=== PATIENT | female | born 1985 | race American Indian/Alaskan Native ===

== ENCOUNTER 2017-12-24 12:26 | Emergency (ER) | payer MEDICAID ==
[2017-12-24] MEDS ORDERED: NACL 0.9% 1000 ML 1,000 ML IV ONE ×2 (13:52→14:53)
--- NOTE | 2017-12-24 13:54 | Emergency Department Report ---
ED General Adult HPI - General Chief complaint: Hyperglycemia Stated complaint: DIFFICULTY BREATH/NAUSE/DKA Time Seen by Provider: 12/24/17 13:49 Source: patient, family, RN notes reviewed Mode of arrival: Stretcher Limitations: Altered Mental Status - History of Present Illness Initial comments: This is an 32-year-old female who is not known to this provider previously, who is brought to the hospital by her mother for hyperglycemia, altered mental status and weakness. Patient is altered and delirious and cannot answer questions. History is obtained from the patient's mother. 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 Mother reports the patient has been not acting right for at least the past day. The symptoms have been present for approximately 12-24 hours. They're constant, and asked her mother, did not radiate anywhere, and did not have exacerbating or relieving factors. Prior to the symptoms, the patient was in her usual state of health. -: days(s) Consistency: constant Improves with: none Worsens with: cold therapy Associated Symptoms: confusion, loss of appetite, weakness - Related Data Home Medications Medication Instructions Recorded Confirmed Last Taken Eluxadoline [Viberzi] 100 mg PO BID 12/24/17 12/24/17 Unknown Ferrous Sulfate [Feosol] 325 mg PO QDAY 12/24/17 12/24/17 Unknown Insulin Glargine,Hum.rec.anlog 15 unit SQ QHS 12/24/17 12/24/17 Unknown [Lantus] Labetalol [Normodyne] 200 mg PO BID 12/24/17 12/24/17 Unknown Lisinopril [Zestril] 20 mg PO QDAY 12/24/17 12/24/17 Unknown Pregabalin [Lyrica] 300 mg PO BID 12/24/17 12/24/17 Unknown amLODIPine [Norvasc] 5 mg PO DAILY 12/24/17 12/24/17 Unknown methOCARBAMOL [Robaxin TAB] 500 mg PO BID 12/24/17 12/24/17 Unknown Allergies Allergy/AdvReac Type Severity Reaction Status Date / Time metoclopramide [From Reglan] Allergy Unknown Verified 12/24/17 13:44 ED Review of Systems ROS: Stated complaint: DIFFICULTY BREATH/NAUSE/DKA Other details as noted in HPI Comment: Unobtainable due to pts medical conditions ED Past Medical Hx - Past Medical History Previous Medical History?: Yes Hx Diabetes: Yes (type 1) - Surgical History Past Surgical History?: No - Social History Smoking Status: Never Smoker Substance Use Type: None - Medications Home Medications: Home Medications Medication Instructions Recorded Confirmed Last Taken Type Eluxadoline [Viberzi] 100 mg PO BID 12/24/17 12/24/17 Unknown History Ferrous Sulfate [Feosol] 325 mg PO QDAY 12/24/17 12/24/17 Unknown History Insulin Glargine,Hum.rec.anlog 15 unit SQ QHS 12/24/17 12/24/17 Unknown History [Lantus] Labetalol [Normodyne] 200 mg PO BID 12/24/17 12/24/17 Unknown History Lisinopril [Zestril] 20 mg PO QDAY 12/24/17 12/24/17 Unknown History Pregabalin [Lyrica] 300 mg PO BID 12/24/17 12/24/17 Unknown History amLODIPine [Norvasc] 5 mg PO DAILY 12/24/17 12/24/17 Unknown History methOCARBAMOL [Robaxin TAB] 500 mg PO BID 12/24/17 12/24/17 Unknown History ED Physical Exam - General Limitations: Altered Mental Status, Physical Limitation General appearance: lethargic - Head Head exam: Present: atraumatic, normocephalic - Eye Eye exam: Present: normal appearance, PERRL, EOMI - ENT ENT exam: Present: mucous membranes dry - Neck Neck exam: Present: normal inspection, full ROM. Absent: tenderness, meningismus - Respiratory Respiratory exam: Present: rhonchi. Absent: respiratory distress - Cardiovascular Cardiovascular Exam: Present: regular rate, normal rhythm, tachycardia, normal heart sounds - GI/Abdominal GI/Abdominal exam: Present: soft. Absent: distended, tenderness, guarding, rebound, rigid, normal bowel sounds, pulsatile mass - Extremities Exam Extremities exam: Present: normal inspection, other (2+ pulses noted in the bilateral upper, lower extremities. Compartments soft. No long bony tenderness. The pelvis is stable.). Absent: pedal edema, joint swelling, calf tenderness - Back Exam Back exam: Present: normal inspection, full ROM. Absent: tenderness, CVA tenderness (R), paraspinal tenderness, vertebral tenderness - Neurological Exam Neurological exam: Present: altered, other (patient will answer some yes no questions. There is no facial droop. She moves 4 extremities spontaneously. Sensation is intact to light touch in 4 extremities. Detailed neurologic examination is limited secondary to underlying delirium.) ED Course Vital Signs 12/24/17 12/24/17 12/24/17 13:45 13:50 15:33 Temperature 97.8 F Pulse Rate 104 H 103 H Respiratory 16 18 22 Rate Blood Pressure 141/92 126/80 O2 Sat by Pulse 96 100 98 Oximetry 12/24/17 12/24/17 12/24/17 15:45 16:00 16:15 Temperature Pulse Rate 102 H 100 H 99 H Respiratory 17 19 16 Rate Blood Pressure 133/79 133/79 129/91 O2 Sat by Pulse 96 97 98 Oximetry 12/24/17 12/24/17 12/24/17 16:30 18:24 18:30 Temperature Pulse Rate 99 H Respiratory 15 Rate Blood Pressure 129/91 125/99 125/99 O2 Sat by Pulse 98 97 Oximetry 12/24/17 12/24/17 12/24/17 18:46 19:00 19:15 Temperature Pulse Rate Respiratory Rate Blood Pressure 139/79 119/70 100/67 O2 Sat by Pulse 99 99 98 Oximetry 12/24/17 12/24/17 12/24/17 19:30 19:45 20:00 Temperature Pulse Rate 97 H 94 H Respiratory 19 19 Rate Blood Pressure 100/67 124/83 112/77 O2 Sat by Pulse 98 95 95 Oximetry 12/24/17 12/24/17 12/24/17 20:15 20:30 20:45 Temperature Pulse Rate 88 88 91 H Respiratory 15 15 14 Rate Blood Pressure 100/56 97/53 106/60 O2 Sat by Pulse 98 98 98 Oximetry 12/24/17 12/24/17 12/24/17 21:00 21:15 21:30 Temperature Pulse Rate 92 H 91 H 93 H Respiratory 14 12 14 Rate Blood Pressure 99/64 105/71 108/63 O2 Sat by Pulse 100 99 98 Oximetry 12/24/17 12/24/17 12/24/17 21:45 22:00 22:15 Temperature Pulse Rate 93 H 95 H 94 H Respiratory 13 14 14 Rate Blood Pressure 112/73 115/75 110/74 O2 Sat by Pulse 98 99 99 Oximetry - Reevaluation(s) Reevaluation #1: 12/24/17 14:30 Differential diagnosis, including but not limited to: Pneumonia, urinary tract infection, diabetic ketoacidosis, dehydration, vasomotor nephropathy, hyperglycemia, hyperosmolar state Assessment and plan: 32-year-old female with global altered mental status, follows commands, suspect metabolic encephalopathy. She is tachycardic, but not hypotensive, and is protecting her airway at this time. Basic laboratory studies and serum toxicology studies pending. EKG, noncontrast CT scan of the brain, noncontrast CT scan of abdomen and pelvis, x- ray the chest pending. We will admit once initial data points have resulted. Reevaluation #2: 12/24/17 14:55 As expected, laboratory studies suggest diabetic ketoacidosis. This is manifested by anion gap of 35, and venous pH of 7.1, in addition to hyperglycemia. Insulin drip, insulin push ordered in addition to additional IV fluids. CT scan, x-ray, EKG still pending at this time. Page is placed out to critical care physician on-call. Family informed and updated. Reevaluation #3: 12/24/17 15:42 X-ray suggests pneumonia. Antibiotics ordered. Case discussed with critical care physician, Dr. Chino, who agrees with placement into the intensive care unit; his group will follow in consultation Reevaluation #4: 12/24/17 15:[address] Kassidy Villarreal to follow up on ct ehad, ct a/p, ua. if no significant disease noted that would require transfer, would admit to this facility critical care on board ED Medical Decision Making - Lab Data Result diagrams: 12/24/17 13:44 12/24/17 20:37 Vital Signs 12/24/17 13:45 Temperature 97.8 F Pulse Rate 104 H Respiratory 16 Rate Blood Pressure 141/92 O2 Sat by Pulse 96 Oximetry Lab Results 12/24/17 12/24/17 12/24/17 Range/Units 13:35 13:44 13:44 WBC 16.2 H (4.5-11.0) K/mm3 RBC 3.42 L (3.65-5.03) M/mm3 Hgb 11.1 (10.1-14.3) gm/dl Hct 34.4 (30.3-42.9) % MCV 101 H (79-97) fl MCH 32 (28-32) pg MCHC 32 (30-34) % RDW 13.1 L (13.2-15.2) % Plt Count 235 (140-440) K/mm3 PT 14.6 (12.2-14.9) Sec. INR 1.09 (0.87-1.13) APTT 30.3 (24.2-36.6) Sec. POC Glucose 392 H (70-105) - EKG Data -: EKG Interpreted by Me EKG shows normal: sinus rhythm Rate: tachycardia - EKG Data When compared to previous EKG there are: previous EKG unavailable 12/24/17 15:04 Sinus tachycardia 102 bpm, normal axis, prolonged QTC, motion artifact, borderline atrial enlargement, this EKG is not a STEMI - Radiology Data Radiology results: pending, image reviewed interpreted by me: X-ray of the chest, interpreted by me, left upper lobe infiltrate, questionable right lower lobe atelectasis versus infiltrate Critical Care Time: Yes Critical care time in (mins) excluding proc time.: 45 Critical care attestation.: If time is entered above; I have spent that time in minutes in the direct care of this critically ill patient, excluding procedure time. ED Disposition Clinical Impression: Encephalopathy, DKA (diabetic ketoacidoses) Disposition: DC/TX-70 ANOTHER TYPE HLTHCARE Is pt being admited?: Yes Condition: Serious Instructions: Diabetic Ketoacidosis (ED) Referrals: PRIMARY CARE, [Primary Care Provider] - 3-5 Days
[2017-12-24 14:15] LABS: Hematocrit 34.4 % (30.3-42.9); Hemoglobin 11.1 gm/dl (10.1-14.3); Mean Corpuscular HGB Conc 32 % (30-34); Mean Corpuscular Hemoglobin 32 pg (28-32); Mean Corpuscular Volume 101 fl (79-97); Platelet Count 235 K/mm3 (140-440); Red Blood Count 3.42 M/mm3 (3.65-5.03); Red Cell Distribution Width 13.1 % (13.2-15.2)
[2017-12-24 14:25] LABS: INR 1.09 (0.87-1.13); Partial Thromboplastin Time 30.3 Sec. (24.2-36.6)
[2017-12-24 14:34] LABS: Alanine Aminotransferase 12 units/L (7-56); Albumin 3.2 g/dL (3.9-5); BUN/Creatinine Ratio 18; Blood Urea Nitrogen 14 mg/dL (7-17); Calcium 8.6 mg/dL (8.4-10.2); Hemolysis Index 6
[2017-12-24] MEDS ORDERED: D50W (25GM) Syringe IV PRN (14:53)
[2017-12-24] MEDS ORDERED: HumuLIN R IV ONE (14:54)
[2017-12-24] MEDS ORDERED: TYLENOL PO ONE ×2 (15:00→18:46)
[2017-12-24] MEDS ORDERED: SODIUM CHLORIDE FLUSH SYRINGE 10 ML IV NR (15:00)
[2017-12-24] MEDS ORDERED: HumuLIN R 100 UNITS in NACL 0.9% 99 ML IV SCH ×2 (15:00→19:00)
[2017-12-24] MEDS ORDERED: D5W/0.45% NACL/KCL 20 MEQ 20 MEQ/1,000 ML BAG IV SCH (15:00)
[2017-12-24] MEDS ORDERED: SODIUM BICARBONATE IV ONE (15:42)
[2017-12-24] MEDS ORDERED: TYLENOL ONE (15:48)
[2017-12-24 16:03] LABS: BUN/Creatinine Ratio 19; Blood Urea Nitrogen 15 mg/dL (7-17); Calcium 8.8 mg/dL (8.4-10.2); Hemolysis Index 1
--- NOTE | 2017-12-24 16:24 | XRay Report ---
FINAL REPORT EXAM: XR CHEST 1V AP HISTORY: ams resp distress > dka TECHNIQUE: Frontal portable view of the chest Comparison: None FINDINGS: There are areas of pulmonary consolidation in both lungs. The largest areas in the left upper lobe. This is most suggestive pneumonia. There is no evidence of pneumothorax or pleural fluid collection. The cardiac silhouette is enlarged. The thoracic aorta is tortuous. The bony structures are notable for dextrocurvature of the thoracic spine. IMPRESSION: 1. Bilateral pulmonary infiltrates most suggestive of pneumonia. Follow-up to resolution is recommended. 2. Enlarged cardiac silhouette.
[2017-12-24] MEDS ORDERED: ROCEPHIN/NS 1 GM/50 ML 1 GM/50 ML BAG IV ONE (16:30)
[2017-12-24] MEDS ORDERED: ZITHROMAX 500 MG in NACL 0.9% 250ML 250 ML IV ONE (16:31)
--- NOTE | 2017-12-24 17:28 | Cat Scan Report ---
FINAL REPORT EXAM: CT HEAD/BRAIN WO CON HISTORY: ams DKA TECHNIQUE: 2.5 millimeter axial images from the skullbase to the vertex. Comparison: None FINDINGS: There is a large area (11 millimeters) irregularly shaped increased density within the he. Whether not this represents calcification or petechial hemorrhage is unclear. There is no evidence of significant mass effect. There are nonspecific areas of decreased density in the subcortical white matter of the parietal lobes bilaterally of indeterminate etiology. There is mild prominence of the lateral, 3rd and 4th ventricles with normal size of the temporal horns. This may be secondary to volume loss. The visualized portions of the orbits, paranasal and mastoid sinuses are unremarkable. The bony structures are unremarkable in appearance. IMPRESSION: 1. Large area of irregularly-shaped density within the he. Whether or not this represents calcification or petechial hemorrhage is unclear. 2. Nonspecific areas of decreased density in the subcortical white matter of the parietal lobes. These may represent areas of demyelination of the. However, an acute white matter process cannot entirely be excluded. 3. Prominence of the ventricles. Though this may be constitutional for this patient, hydrocephalus cannot entirely be excluded. This study was discussed with Dr. Fuchs at 5:25 p.m. December 24, 2017.
--- NOTE | 2017-12-24 17:37 | Cat Scan Report ---
FINAL REPORT EXAM: CT ABDOMEN PELVIS WO CON HISTORY: ams abd pain TECHNIQUE: Axial helical imaging through the abdomen and pelvis with sagittal and coronal reformatted images obtained. Comparison: None FINDINGS: Visualization detail in portions of the abdomen and pelvis is significantly limited by motion artifact. There are areas of pulmonary consolidation both lung bases most suggestive pulmonary infiltrate/pneumonia. There is no evidence of pneumothorax or pleural fluid collection. The heart appears to be enlarged. The there is a hiatal hernia. The liver, spleen, pancreas and gallbladder are unremarkable. There is moderate bilateral hydronephrosis with bilateral hydroureter. This is most likely secondary to marked distention of the urinary bladder. The urinary bladder is otherwise unremarkable. The bowel is normal caliber. There is a small amount of fluid in the pelvis. There is no evidence of pneumoperitoneum. The appendix is normal caliber. The abdominal aorta is normal caliber. The bony structures are unremarkable. IMPRESSION: 1. Study degraded by motion artifact. 2. Bilateral pulmonary infiltrates consistent with pneumonia. 3. Bilateral hydronephrosis most likely secondary to marked distention of the urinary bladder. 4. Small amount of fluid in the pelvis. 5. Cardiomegaly. 6. Hiatal hernia. The findings of pneumonia and marked distention of the urinary bladder with resulting hydronephrosis were discussed with Dr. Mo at 5:25 p.m. December 24, 2017.
[2017-12-24 17:46] LABS: Bilirubin,Urine NEG (Negative); Blood,Urine MOD (Negative); Color,Urine Yellow (Yellow); Mucus,Urine FEW /HPF; Urobilinogen,Urine < 2.0 mg/dL (<2.0)
[2017-12-24 18:09] LABS: BUN/Creatinine Ratio 17; Blood Urea Nitrogen 15 mg/dL (7-17); Calcium 8.8 mg/dL (8.4-10.2); Hemolysis Index 6
[2017-12-24 19:20] LABS: BUN/Creatinine Ratio 18; Blood Urea Nitrogen 16 mg/dL (7-17); Calcium 8.4 mg/dL (8.4-10.2); Hemolysis Index 0
[2017-12-24] MEDS ORDERED: NACL 0.9% 1000 ML 1,000 ML ONE (19:39)
[2017-12-24] MEDS ORDERED: MORPHINE IV ONE (19:45)
--- NOTE | 2017-12-24 20:10 | Emergency Department Report ---
Blank Doc - Documentation Documentation: This patient was signed out to me by my colleague, Dr. Lewis, to follow-up on the patient's CT scans of the head without contrast and the abdomen and pelvis with IV contrast. The patient was originally here for some altered mental status and concerns regarding her diabetes and was found to be in diabetic ketoacidosis. A chest x-ray previously showed concern for basilar pneumonia. CT scan of the abdomen and pelvis with IV contrast came back showing a distended bladder with bilateral hydronephrosis. It also reaffirmed the bibasilar pneumonia. The patient does have some flank pains. A Curry catheter will be placed to drain the bladder and hopefully resolve her discomfort. Otherwise she has been given a second dose of Tylenol and a small dose of morphine for discomfort. The CT scan of the head came back showing a hyperdense area within the he that is about 11 mm that was concerning for calcification versus petechial hemorrhage. With the reading of this CT scan, there is uncertainty regarding whether or not the patient has a he bleed. I am unable to get a MRI at this time until 8 AM tomorrow morning. I went and reevaluated the patient, as I have done multiple times now, and she remains awake and alert and oriented. Her pupils are equal and reactive to light. Cranial nerves are intact. There are no focal, motor or sensory deficits. Full examination below. I spoke with a Dr. Wetzel, neuro critical care at [facility], who took a look at the CT scan that was sent to him and agrees that it is an abnormal appearance that still could represent blood. However the description of the patient's examination does not appear to match with someone who would have a significant bleed in the he as he says that there would normally be some changes in her pupils, cranial nerves or some focal deficits or even respiratory issues. There were no beds at [facility]. His recommendation was to see if the patient had any worsening of her symptoms or status and if so there should be available beds at [facility]. If not, the patient should have a stat MRI in the morning. However, with the patient's diabetic ketoacidosis, pneumonia, and need for some pain medications, I felt it would be more prudent to have the patient transferred somewhere where there is MRI capability, neurology and/or neurosurgery. I spoke with Dr. Kyle, [facility], who has accepted the patient for transfer to [facility]. The patient and the patient's mother has been updated along the way regarding the CT findings, the updated labs and the plan for transfer and they understand and agree. GENERAL: Patient is ill-appearing. HEENT: Normocephalic. Atraumatic. Patient has moist mucous membranes. EYES: Extraocular motions are intact. Pupils are equal and reactive to light bilaterally. No nystagmus. NECK: Supple. Trachea is midline. CHEST/LUNGS: Clear to auscultation. There is no respiratory distress noted. HEART/CARDIOVASCULAR: Regular. There is no tachycardia. There is no gallop rub or murmur. ABDOMEN: Abdomen is soft, nontender. Patient has normal bowel sounds. There is no abdominal distention. SKIN: Skin is warm and dry. NEURO: The patient is awake, alert, and oriented. The patient is cooperative. The patient has no focal neurologic deficits. Patient is slow to respond but otherwise does not have any slurred speech or aphasia. MUSCULOSKELETAL: There is no tenderness or deformity. There is no limitation range of motion. There is no evidence of acute injury. Imagin: EXAM: CT ABDOMEN PELVIS WO CON HISTORY: ams abd pain TECHNIQUE: Axial helical imaging through the abdomen and pelvis with sagittal and coronal reformatted images obtained. Comparison: None FINDINGS: Visualization detail in portions of the abdomen and pelvis is significantly limited by motion artifact. There are areas of pulmonary consolidation both lung bases most suggestive pulmonary infiltrate/pneumonia. There is no evidence of pneumothorax or pleural fluid collection. The heart appears to be enlarged. The there is a hiatal hernia. The liver, spleen, pancreas and gallbladder are unremarkable. There is moderate bilateral hydronephrosis with bilateral hydroureter. This is most likely secondary to marked distention of the urinary bladder. The urinary bladder is otherwise unremarkable. The bowel is normal caliber. There is a small amount of fluid in the pelvis. There is no evidence of pneumoperitoneum. The appendix is normal caliber. The abdominal aorta is normal caliber. The bony structures are unremarkable. IMPRESSION: 1. Study degraded by motion artifact. 2. Bilateral pulmonary infiltrates consistent with pneumonia. 3. Bilateral hydronephrosis most likely secondary to marked distention of the urinary bladder. 4. Small amount of fluid in the pelvis. 5. Cardiomegaly. 6. Hiatal hernia. The findings of pneumonia and marked distention of the urinary bladder with resulting hydronephrosis were discussed with Dr. Mo at 5:25 p.m. December 24, 2017. Transcribed By: ED Dictated By: MULU KIDD MD Electronically Authenticated By: MULU KIDD MD Signed Date/Time: 12/24/17 3549 EXAM: CT HEAD/BRAIN WO CON HISTORY: ams DKA TECHNIQUE: 2.5 millimeter axial images from the skullbase to the vertex. Comparison: None FINDINGS: There is a large area (11 millimeters) irregularly shaped increased density within the he. Whether not this represents calcification or petechial hemorrhage is unclear. There is no evidence of significant mass effect. There are nonspecific areas of decreased density in the subcortical white matter of the parietal lobes bilaterally of indeterminate etiology. There is mild prominence of the lateral, 3rd and 4th ventricles with normal size of the temporal horns. This may be secondary to volume loss. The visualized portions of the orbits, paranasal and mastoid sinuses are unremarkable. The bony structures are unremarkable in appearance. IMPRESSION: 1. Large area of irregularly-shaped density within the he. Whether or not this represents calcification or petechial hemorrhage is unclear. 2. Nonspecific areas of decreased density in the subcortical white matter of the parietal lobes. These may represent areas of demyelination of the. However, an acute white matter process cannot entirely be excluded. 3. Prominence of the ventricles. Though this may be constitutional for this patient, hydrocephalus cannot entirely be excluded. Transcribed By: ED Dictated By: MULU KIDD MD Electronically Authenticated By: MULU KIDD MD Signed Date/Time: 12/24/17 7347 35 minutes of care time spent on this patient and doing my initial evaluation, multiple re-evaluations, discussion of the CT scans with the radiologist, discussion with [place] [facility], discussion with [place] [facility] critical [facility], multiple discussions with the patient and her family, starting insulin drip, pain management. The patient was once again reevaluated as transportation came to return to [facility] and the patient remains awake, alert, protecting her airway and stable for transfer.
[2017-12-24 21:04] LABS: BUN/Creatinine Ratio 20; Blood Urea Nitrogen 18 mg/dL (7-17); Calcium 7.7 mg/dL (8.4-10.2); Hemolysis Index 0
[2017-12-24 22:24] VITALS: BP 110/74
== END 2017-12-24 22:36 | disposition other institution (70) ==
LOC: ED 12:26
DX: E10.10 Type 1 diabetes mellitus with ketoacidosis without coma (principal); E10.65 Type 1 diabetes mellitus with hyperglycemia; G93.40 Encephalopathy, unspecified; R63.0 Anorexia; N94.89 Other specified conditions associated with female genital organs and menstrual cycle
CPT/HCPCS: 36415; 51702; 70450; 71045; 74176; 80048; 80053; 81001; 82140; 82550; 82805; 82962; 83735; 84702; 85027; 85610; 85730; 87040; 93005; 93010; 96361; 96365; 96367; 96368; 96375; 99291; G0480; J0456; J0696; J2270; J7030; J7050; 80320; J1815